=== PATIENT | female | born 2000 | race Hispanic/Latino ===

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

== ENCOUNTER 2020-02-06 14:59 | Emergency (ER) | payer OTHER ==
[2020-02-07 15:31] LABS: SARS-CoV-2 MS2 Positive; SARS-CoV-2 N Gene Positive; SARS-CoV-2 S Gene Positive; SARS-CoV-2 orf1ab Positive
== END 2020-02-06 15:50 | disposition home or self-care (01) ==
LOC: NAV ERS 14:59
DX: U07.1 COVID-19 (principal)
CPT/HCPCS: 87635; 99283; U0003